=== PATIENT | female | born 1995 | race Caucasian/White ===

== ENCOUNTER → 2017-02-15 | Outpatient (REF) | LOC: WSOH 13:18 | DX: Z02.1 Encounter for pre-employment examination (principal) ==

== ENCOUNTER → 2017-02-22 | Outpatient (REF) | LOC: WSOH 10:00 | DX: Z23 Encounter for immunization (principal) ==

== ENCOUNTER → 2017-03-23 | Outpatient (REF) | LOC: WSOH 08:27 | DX: Z23 Encounter for immunization (principal) ==

== ENCOUNTER 2017-05-23 01:45 | Emergency (ER) | payer OTHER ==
[~2017-05-23] VITALS: Ht 160 cm; Wt 100.0 kg
[2017-05-23 01:47] VITALS: TEMP 97.9
[2017-05-23 02:43] VITALS: BP 138/79; PULSE 65
== END 2017-05-23 02:48 | disposition home or self-care (01) ==
LOC: COL.ER 01:45
DX: S69.91XA Unspecified injury of right wrist, hand and finger(s), initial encounter (principal); K75.9 Inflammatory liver disease, unspecified; W21.01XA Struck by football, initial encounter; Y92.830 Public park as the place of occurrence of the external cause

== ENCOUNTER → 2017-07-01 | Outpatient (REF) | LOC: WSOH 13:49 | DX: Z01.84 Encounter for antibody response examination (principal) ==

== ENCOUNTER → 2018-05-26 | Outpatient (CLI) | payer BC | LOC: COL.RAD 08:13 | DX: N83.291 Other ovarian cyst, right side (principal) ==

== ENCOUNTER → 2018-06-22 | Outpatient (CLI) | payer BC | LOC: COL.RAD 08:10 | DX: N94.10 Unspecified dyspareunia (principal) | CPT/HCPCS: A9585 ==